=== PATIENT | male | born 1970 | race Asian ===

== ENCOUNTER 2023-03-01 19:41 | Emergency (ER) | payer OTHER ==
[~2023-03-01] VITALS: Ht 172.7 cm; Wt 54.5 kg
[2023-03-01] MEDS ORDERED: SODIUM CHLORIDE 0.9% 1,800 ML IV ONE (20:00)
[2023-03-01] MEDS ORDERED: AMPICILLIN SODIUM/SULBACTAM NA 3 GM in SODIUM CHLORIDE 0.9% 100 ML IV ONE (20:00)
[2023-03-01] MEDS ORDERED: 0.9% SODIUM CHLORIDE 10 ML SYRINGE IVP PRN (20:00)
[2023-03-01] MEDS ORDERED: ACETAMINOPHEN 1000 MG/ISO-OSM 100 ML IV ONE (20:00)
[2023-03-01] MEDS ORDERED: PIPERACILLIN SODIUM/TAZOBACTAM 4.5 GM in DEXTROSE 5%-WATER 100 ML IV ONE (20:00)
[2023-03-01 20:08] LABS: BASOPHILS % (AUTO) 0.7 % (0.0-2.0); EOSINOPHILS % (AUTO) 0.8 % (1.0-6.0); HEMATOCRIT 34.1 % (41-53); HEMOGLOBIN 10.8 g/dL (13.5-17.5); LYMPHOCYTES # (AUTO) 2.5 K/uL (1.0-4.8); LYMPHOCYTES % (AUTO) 18.8 % (22.0-44.0); MEAN CORPUSCULAR HEMOGLOBIN 24.6 pg (26.0-34.0); MEAN CORPUSCULAR HGB CONC 31.6 G/dL (31.0-37.0); MEAN CORPUSCULAR VOLUME 78 fL (80-100); MONOCYTES % (AUTO) 7.2 % (2.0-9.0); NEUTROPHILS # (AUTO) 9.8 K/uL (1.8-7.7); NEUTROPHILS % (AUTO) 72.5 % (40.0-70.0); RED BLOOD CELL COUNT(AUTO) 4.36 MIL/uL (4.50-5.90); RED CELL DISTRIBUTION WIDTH 15.7 % (11.5-14.5)
[2023-03-01 20:08] LABS: COVID AG,FIA SOURCE NASOPHARYNGEAL
[2023-03-01 20:09] LABS: PLATELET COUNT (AUTO) 769 K/uL (150-450)
[2023-03-01 20:18] LABS: PROTHROMBIN TIME 10.8 SEC (9.4-11.6)
[2023-03-01 20:24] LABS: LACTIC ACID 0.9 mmol/L (0.4-2.0)
[2023-03-01 20:26] LABS: PLATELET MORPHOLOGY COMMENT GIANT PLTS PRESENT
[2023-03-01 20:30] LABS: ANION GAP 8 mmol/L (8-16); CALCIUM, TOTAL 9.7 mg/dL (8.8-10.5); CARBON DIOXIDE 27 mmol/L (22-29); CHLORIDE 98 mmol/L (98-107); GLOMERULAR FILTR. RATE CALC > 60 mL/min (>60); GLUCOSE,RANDOM 115 mg/dL (70-110); POTASSIUM 4.1 mmol/L (3.5-5.1); SODIUM SERUM 133 mmol/L (136-145); UREA NITROGEN, BLOOD 14 mg/dL (7-18)
[2023-03-01] MEDS ORDERED: SODIUM CHLORIDE 0.9% 100 ML ONE (20:33)
[2023-03-01 20:34] LABS: B-TYPE NATRIURETIC PEPTIDE 18 pg/mL (0-100)
[2023-03-01] MEDS ORDERED: IOHEXOL 350 MG/ML 100 ML VIAL ONE (20:34)
[2023-03-01 20:52] LABS: ALANINE AMINOTRANSFERASE 20 U/L (12-78); ALBUMIN 3.4 g/dL (3.4-5.0); ALKALINE PHOSPHATASE 78 U/L (46-116); ASPARTATE AMINOTRANSFERASE 14 U/L (15-37); BILIRUBIN,TOTAL 0.4 mg/dL (0.1-1.0); CREATINE KINASE, TOTAL ONLY 124 U/L (39-308); PHOSPHORUS 3.6 mg/dL (2.5-4.9); TOTAL PROTEIN, SERUM 9.5 g/dL (6.4-8.2)
[2023-03-01 21:01] LABS: AMPHET/METH SCREEN,URINE POSITIVE (NEGATIVE); BARBITURATE SCREEN, URINE NEGATIVE (NEGATIVE); BENZODIAZEPINES SCREEN,URINE NEGATIVE (NEGATIVE); CANNABINOID SCREEN,URINE NEGATIVE (NEGATIVE); COCAINE SCREEN,URINE NEGATIVE (NEGATIVE); METHADONE SCREEN, URINE NEGATIVE (NEGATIVE); PHENCYCLIDINE SCREEN,URINE NEGATIVE (NEGATIVE)
[2023-03-01 21:03] LABS: RAPID GROUP A STREP NEGATIVE (NEGATIVE)
[2023-03-01 21:04] LABS: APPEARANCE,URINE CLEAR (CLEAR); BILIRUBIN,URINE NEGATIVE (NEGATIVE); GLUCOSE, URINE (UA) NEGATIVE (NEGATIVE); KETONES,URINE NEGATIVE (NEGATIVE); LEUKOCYTE ESTERASE ,URINE NEGATIVE (NEGATIVE); NITRATE,URINE NEGATIVE (NEGATIVE); OCCULT BLOOD,URINE NEGATIVE (NEGATIVE); PROTEIN,URINE TRACE mg/dL (NEGATIVE); SPECIFIC GRAVITIY, URINE 1.019 (1.003-1.030); UROBILINOGEN,URINE <=1.0 mg/dL (<=1.0)
[2023-03-01 21:13] LABS: INFLUENZA TYPE A NEGATIVE FOR TYPE A (NEGATIVE); INFLUENZA TYPE B NEGATIVE FOR TYPE B (NEGATIVE)
[2023-03-01 21:14] LABS: OPIATE SCREEN,URINE NEGATIVE (NEGATIVE)
[2023-03-01] MEDS ORDERED: VANCOMYCIN 1GM/WATER(PEG/NADA) 200 ML IV ONE (22:45)
[2023-03-01 23:25] VITALS: BP 128/79
[2023-03-01] MEDS ORDERED: SULFAMETHOX/TRIMETH DS 800-160 MG/TABLET PO ONE (23:45)
== END 2023-03-02 00:47 | disposition left against medical advice (07) ==
LOC: EMS 19:41
DX: K04.7 Periapical abscess without sinus (principal); A41.9 Sepsis, unspecified organism; F17.210 Nicotine dependence, cigarettes, uncomplicated; Z20.822 Contact with and (suspected) exposure to COVID-19
CPT/HCPCS: 99285; 96365; 70491; 71045; 96366; 96367; 87426; 80053; 82550; 83605; 83735; 83880; 84100; 84484; 85025; 85610; 86308; 87040; 87430; 87804; 36415; 93005; 84145; 81003; 80307 ×2; G0480; J2543; J0295; Q9967; J7060; J7050; J0131